=== PATIENT | male | born 1940 | race Caucasian/White ===

== ENCOUNTER 2019-03-26 20:08 | Emergency (ER) | payer MEDICARE ==
[~2019-03-26] VITALS: Ht 175.3 cm; Wt 90.7 kg
[2019-03-26 20:08] VITALS: BP 112/69
[2019-03-26] MEDS ORDERED: SILVER SULFADIAZINE CREAM 25 GM TUBE ONE (20:45)
[2019-03-26] MEDS: SILVER SULFADIAZINE CREAM 25 GM TUBE TP ONE (20:45)
[2019-03-26] MEDS: HYDROCODONE/APAP 5/325MG 1 EACH TABLET PO ONE (21:27)
[2019-03-26] MEDS: TDAP [DIPH/PERTUSSIS/TET] 0.5 ML VIAL IM ONE (21:27)
== END 2019-03-26 21:58 | disposition home or self-care (01) ==
LOC: ER 20:18
DX: T23.202A Burn of second degree of left hand, unspecified site, initial encounter (principal); I10 Essential (primary) hypertension; X12.XXXA Contact with other hot fluids, initial encounter; Y93.89 Activity, other specified; Y92.89 Other specified places as the place of occurrence of the external cause; Y99.8 Other external cause status